=== PATIENT | female | born 1950 | race Asian ===

== ENCOUNTER 2024-12-17 11:40 | Inpatient (IN) | payer MEDICARE, OTHER ==
[~2024-12-17] VITALS: Ht 167.6 cm; Wt 42.6 kg
[2024-12-17 12:17] LABS: PLATELET COUNT (AUTO) 322 K/uL (150-450); RED BLOOD CELL COUNT(AUTO) 4.61 MIL/uL (4.0-5.2); RED CELL DISTRIBUTION WIDTH 13.1 % (11.5-15.0); WHITE BLOOD COUNT (AUTO) 6.6 K/uL (4.3-11.0)
[2024-12-17 12:34] LABS: CALCIUM, SERUM 9.0 mg/dL (8.5-10.1); CREATININE 0.4 mg/dL (0.6-1.3); SODIUM SERUM 139 mmol/L (136-145); UREA NITROGEN, BLOOD 17 mg/dL (7-18)
[2024-12-17 12:41] LABS: ALCOHOL, BLOOD < 3 mg/dL (0-10); ASPARTATE AMINOTRANSFERASE 18 U/L (15-37); TOTAL PROTEIN, SERUM 7.4 g/dL (6.4-8.2)
[2024-12-17 13:57] LABS: AMPHETAMINE, URINE NEGATIVE (NEGATIVE); BARBITURATE, URINE NEGATIVE (NEGATIVE); BENZODIAZEPINE, URINE NEGATIVE (NEGATIVE); CANNABINOID, URINE NEGATIVE (NEGATIVE); COCCAINE, URINE NEGATIVE (NEGATIVE); OPIATE, URINE NEGATIVE (NEGATIVE)
[2024-12-17 14:59] LABS: APPEARANCE,URINE SLIGHTLY CLOUDY (CLEAR); BLOOD, URINE TRACE-INTA Ery/uL (NEGATIVE); LEUKOCYTE ESTERASE ,URINE 3+ (NEGATIVE); NITRITE, URINE POSITIVE (NEGATIVE); UGLUCOSE 1+ mg/dL (NEGATIVE)
[2024-12-17 15:16] LABS: ADD URINE CULTURE YES
[2024-12-17] MEDS ORDERED: CEPHALEXIN MONOHYDRATE 500 MG CAPSULE PO ONE (15:38)
[2024-12-17] MEDS ORDERED: NITROFURANTOIN/MONOHYDRATE MACROCRYSTALS 100 MG CAPSULE ONE (15:40)
[2024-12-17] MEDS: NITROFURANTOIN/MONOHYDRATE MACROCRYSTALS 100 MG CAPSULE PO SCH (15:51)
[2024-12-17] MEDS ORDERED: DEXTROSE 50%-WATER 50 ML DISP.SYRIN IV PRN (16:00)
[2024-12-17] MEDS ORDERED: CEPHALEXIN MONOHYDRATE 500 MG CAPSULE PO SCH (16:00)
[2024-12-17 16:57] VITALS: BP 144/68; TEMP 97.3; O2SAT 97
[2024-12-17] MEDS ORDERED: LORAZEPAM 1 MG TABLET PO PRN (17:00)
[2024-12-17] MEDS ORDERED: ZOLPIDEM TARTRATE 5 MG TABLET PO PRN ×2 (17:00)
[2024-12-17] MEDS ORDERED: MAG HYDROX/AL HYDROX/SIMETH 30 ML UDC PO PRN (17:00)
[2024-12-17] MEDS ORDERED: LORAZEPAM 0.5 MG TABLET PO PRN (17:00)
[2024-12-17] MEDS: BLOOD SUGAR DIAGNOSTIC 1 EACH STRIP IN SCH (17:42)
[2024-12-17] MEDS: BLOOD SUGAR DIAGNOSTIC 1 EACH STRIP IN ONE (17:42)
[2024-12-17] MEDS: INSULIN REGULAR, HUMAN 100 UNIT/ML 3 ML VIAL SQ PRN (18:28)
[2024-12-17 20:04] VITALS: BP 149/76; TEMP 98; O2SAT 98
[2024-12-18 08:00] VITALS: BP 148/71; TEMP 97.8; O2SAT 98
[2024-12-18] MEDS: GLUCERNA SHAKE 237 ML CAN PO SCH (15:32)
[2024-12-18 16:11] VITALS: BP 110/72; TEMP 97.9; O2SAT 97
[2024-12-18 19:58] VITALS: BP 116/58; TEMP 98; O2SAT 96
[2024-12-18] MEDS: QUETIAPINE FUMARATE 100 MG TABLET PO SCH (21:20)
[2024-12-19 08:00] VITALS: BP 126/59; TEMP 97.9; O2SAT 97
[2024-12-19 16:00] VITALS: BP 111/61; TEMP 98.1; O2SAT 97
[2024-12-19] MEDS: OLANZAPINE ZYDIS 5 MG TAB.RAPDIS PO SCH (16:26)
[2024-12-19 19:05] LABS: ASPARTATE AMINOTRANSFERASE 14.0 U/L (15-37); CALCIUM, SERUM 9.2 mg/dL (8.5-10.1); CREATININE 0.5 mg/dL (0.6-1.3); LDL 166 mg/dL (0-99); SODIUM SERUM 137.0 mmol/L (136-145); TOTAL PROTEIN, SERUM 6.9 g/dL (6.4-8.2); UREA NITROGEN, BLOOD 19.0 mg/dL (7-18)
[2024-12-19 19:53] VITALS: BP 140/65; TEMP 98; O2SAT 98
[2024-12-19] MEDS: LITHIUM CARBONATE 150 MG CAPSULE PO SCH (21:00)
[2024-12-20 08:00] VITALS: BP 144/73; TEMP 97.8; O2SAT 97
[2024-12-20] MEDS: Z GUARD REMEDY 4 OZ OINT TP PRN (08:29)
[2024-12-20] MEDS: OLANZAPINE 10 MG VIAL IM STA (09:16)
[2024-12-20 16:00] VITALS: BP 124/62; TEMP 97.9; O2SAT 100
[2024-12-21] MEDS: ACETAMINOPHEN 325 MG TABLET PO PRN (02:09)
[2024-12-21 08:00] VITALS: BP 113/72; TEMP 98; O2SAT 96
[2024-12-21] MEDS ORDERED: MIDODRINE HCL (5MG) 5 MG TABLET PO SCH (13:00)
[2024-12-21 15:54] VITALS: BP_SYST 113; BP_SYST 143; BP_DIAS 56; BP_DIAS 69; TEMP 97.5; TEMP 97.7; O2SAT 97
[2024-12-21] MEDS: OLANZAPINE 10 MG VIAL IM PRN (16:41)
[2024-12-21 20:43] VITALS: BP 121/58; TEMP 97.8; O2SAT 97
[2024-12-22 08:00] VITALS: BP 137/71; TEMP 98.7; O2SAT 98
[2024-12-22 16:00] VITALS: BP 122/60; TEMP 98.9; O2SAT 100
[2024-12-22 21:02] VITALS: BP 121/67; TEMP 98.8; O2SAT 98
[2024-12-23 08:00] VITALS: BP 140/72; TEMP 97.9; O2SAT 99
[2024-12-23 16:00] VITALS: BP 143/62; TEMP 97.8; O2SAT 98
[2024-12-23 20:26] VITALS: BP 158/74; TEMP 98.2; O2SAT 99
[2024-12-24 08:00] VITALS: BP 157/80; TEMP 98.1; O2SAT 98
[2024-12-24] MEDS: LITHIUM CARBONATE 150 MG CAPSULE PO SCH (13:00)
[2024-12-24 16:00] VITALS: BP 113/60; TEMP 99.5; O2SAT 95
[2024-12-24] MEDS: OLANZAPINE 10 MG VIAL IM PRN (17:39)
[2024-12-24] MEDS ORDERED: ATOR10TA PO (18:42)
[2024-12-24] MEDS ORDERED: METO100C PO (18:42)
[2024-12-24] MEDS ORDERED: LAMO200T10 PO (18:42)
[2024-12-24] MEDS ORDERED: ALEN70TA80 PO (18:42)
[2024-12-24] MEDS ORDERED: BENA40TA8 PO (18:42)
[2024-12-24] MEDS ORDERED: CARB1TAB21 PO (18:42)
[2024-12-24] MEDS ORDERED: FENO48TA6 PO (18:42)
[2024-12-24] MEDS ORDERED: PALI234D IM (18:42)
[2024-12-24] MEDS ORDERED: QUET400T PO (18:42)
[2024-12-24] MEDS ORDERED: OMEG1CAP13 PO (18:42)
[2024-12-24] MEDS ORDERED: LATA2.5D15 EACHEYE (18:42)
[2024-12-24] MEDS ORDERED: SEMA0.25 SQ (18:42)
[2024-12-24] MEDS ORDERED: [UNRECOGNIZED DRUG - CODE] PO (18:42)
[2024-12-24] MEDS ORDERED: METF-442 PO (18:42)
[2024-12-24] MEDS ORDERED: DILT120T14 PO (18:42)
[2024-12-24] MEDS ORDERED: LAMO25TA10 PO (18:42)
[2024-12-24] MEDS ORDERED: DAPA5TAB PO (18:42)
[2024-12-24 20:11] VITALS: BP 150/75; TEMP 98.1; O2SAT 98
[2024-12-25 08:00] VITALS: BP 138/88; TEMP 97.8; O2SAT 100
[2024-12-25 16:00] VITALS: BP 129/67; TEMP 98; O2SAT 99
[2024-12-25] MEDS: CARBIDOPA/LEVODOPA 25/100 MG 1 UDTAB PO SCH (17:00)
[2024-12-25] MEDS: METFORMIN 500 MG TABLET PO SCH (17:00)
[2024-12-25 20:24] VITALS: BP 100/83; TEMP 97.9; O2SAT 96
[2024-12-25] MEDS: ATORVASTATIN 10 MG TABLET PO SCH (21:32)
[2024-12-26 08:00] VITALS: BP 120/54; TEMP 98.6; O2SAT 98
[2024-12-26] MEDS: MULTIVIT W/MINERALS 1 TAB TABLET PO SCH (08:53)
[2024-12-26] MEDS: DAPAGLIFLOZIN PROPANEDIOL 5 MG TABLET PO SCH (08:53)
[2024-12-26] MEDS: LATANOPROST EYE DROP 0.005% 2.5 ML BOTTLE EACHEYE SCH (08:53)
[2024-12-26] MEDS: DILTIAZEM HCL CD 120 MG PO SCH (08:54)
[2024-12-26] MEDS ORDERED: FISH OIL PO SCH (09:00)
[2024-12-26] MEDS ORDERED: FATTY ACIDS PO SCH (09:00)
[2024-12-26] MEDS ORDERED: OMEGA PO SCH (09:00)
[2024-12-26] MEDS ORDERED: [UNRECOGNIZED DRUG - OTHER] PO SCH (09:00)
[2024-12-26] MEDS: METOPROLOL SUCCINATE 50 MG TAB.SR.24H PO SCH (13:30)
[2024-12-26 16:00] VITALS: BP 146/81; TEMP 98.8; O2SAT 98
[2024-12-26 20:00] VITALS: BP 153/72; TEMP 98.6; O2SAT 98
[2024-12-26 20:13] VITALS: BP 153/72; TEMP 98.6; O2SAT 98
[2024-12-27 08:00] VITALS: BP 156/76; TEMP 97.9; O2SAT 95
[2024-12-27] MEDS: PALIPERIDONE PALMITATE 234 MG/1.5 ML SYRINGE IM SCH (09:59)
[2024-12-27 16:00] VITALS: BP 139/73; TEMP 97.7; O2SAT 97
[2024-12-28 05:13] VITALS: BP 123/68; TEMP 98; O2SAT 98
[2024-12-28 08:00] VITALS: BP 118/76; TEMP 97.7; O2SAT 97
[2024-12-28 16:02] VITALS: BP 110/52; TEMP 98; O2SAT 97
[2024-12-28] MEDS: ALENDRONATE 70 MG TABLET PO SCH (16:08)
[2024-12-28 21:12] VITALS: BP 99/53; TEMP 98.8; O2SAT 98
[2024-12-29] MEDS: MAGNESIUM HYDROXIDE 30 ML UDC PO PRN (02:45)
[2024-12-29 08:13] VITALS: BP 105/92; TEMP 97.9; O2SAT 98
[2024-12-29 16:03] VITALS: BP 123/57; TEMP 97.8; O2SAT 97
[2024-12-29 20:49] VITALS: BP 128/62; TEMP 98.6; O2SAT 97
[2024-12-30 08:00] VITALS: BP 137/92; TEMP 98.6; O2SAT 98
[2024-12-30 16:00] VITALS: BP 152/74; TEMP 98.6; O2SAT 97
[2024-12-30 20:40] VITALS: BP 148/68; TEMP 97.7; O2SAT 98
[2024-12-31 08:00] VITALS: BP 146/71; TEMP 98.6; O2SAT 98
[2024-12-31] MEDS ORDERED: LITH150C PO (11:02)
[2024-12-31] MEDS: CLONIDINE HCL 0.1MG/24H PTWK 1 EA PATCH TD SCH (13:00)
[2025-01-04] MEDS ORDERED: ALENDRONATE 70 MG TABLET PO SCH (07:30)
== END 2024-12-31 13:00 | disposition home or self-care (01) | DRG 885 ==
LOC: ER 11:45 → GPS 14:43
PROVIDERS: ADMIT Psychiatry & Neurology Psychiatry; ATTEND Nurse Practitioner Acute Care
DX: F25.0 Schizoaffective disorder, bipolar type (principal); E43 Unspecified severe protein-calorie malnutrition; E11.65 Type 2 diabetes mellitus with hyperglycemia; N39.0 Urinary tract infection, site not specified; F02.83 Dementia in other diseases classified elsewhere, unspecified severity, with mood disturbance; F02.82 Dementia in other diseases classified elsewhere, unspecified severity, with psychotic disturbance; R64 Cachexia; F32.A Depression, unspecified; F29 Unspecified psychosis not due to a substance or known physiological condition; G20.A1 Parkinson's disease without dyskinesia, without mention of fluctuations; F02.80 Dementia in other diseases classified elsewhere, unspecified severity, without behavioral disturbance, psychotic disturbance, mood disturbance, and anxiety; Z91.148 Patient's other noncompliance with medication regimen for other reason; M81.0 Age-related osteoporosis without current pathological fracture; I10 Essential (primary) hypertension; E78.5 Hyperlipidemia, unspecified; Z73.6 Limitation of activities due to disability; B96.89 Other specified bacterial agents as the cause of diseases classified elsewhere; F39 Unspecified mood [affective] disorder
CPT/HCPCS: 36415; 80048-TC; 80053-TC; 80061-TC; 80076-TC; 81001; 82962-TC; 85025-TC; 87081-TC; 87086-TC; 87186-TC; 97112-TC; 97116-TC; 97530-TC; G0480; J1815; J2426; J3490